=== PATIENT | male | born 1935 | race Caucasian/White ===

== ENCOUNTER 2017-06-21 13:54 | Outpatient (CLI) | payer BC | END 2017-06-21 13:55 | LOC: LAB 13:54 | PROVIDERS: ATTEND Family Medicine | DX: E11.9 Type 2 diabetes mellitus without complications (principal) | CPT/HCPCS: 36415; 83036 ==

== ENCOUNTER 2017-12-25 09:47 | Outpatient (CLI) | payer BC ==
[2017-12-25 10:36] LABS: eGFR (African) > 60; eGFR (Non-African) > 60
== END 2017-12-25 10:30 ==
LOC: LAB 09:47
PROVIDERS: ATTEND Family Medicine
DX: E78.5 Hyperlipidemia, unspecified (principal); I10 Essential (primary) hypertension; E78.00 Pure hypercholesterolemia, unspecified; R73.9 Hyperglycemia, unspecified
CPT/HCPCS: 36415; 80053; 80061; 83036

== ENCOUNTER 2017-12-30 04:10 | Emergency (ER) | payer BC ==
[2017-12-30 04:36] VITALS: BP 142/56
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
[2017-12-30] MEDS: MAGNESIUM CITRATE 296 ML BOTTLE PO ONE (05:04)
== END 2017-12-30 05:12 | disposition home or self-care (01) ==
LOC: ED 04:10
DX: K59.00 Constipation, unspecified (principal)
CPT/HCPCS: 99282

== ENCOUNTER 2018-02-09 10:50 | Outpatient (CLI) | payer BC ==
--- NOTE | 2018-02-09 19:03 | Diagnostic Imaging Report ---
JIMMIE RODRIGUEZ [facility] [address] [facility].[address] [address] Report Submission Date: Feb 09, 2018 11:19:18 AM CDT Patient Study Name: KAYLEEN RAYMOND Date: Feb 09, 2018 10:58:52 AM CDT Modality Type: DX Gender: M Description: SHOULDER : 35 Institution: [facility] Physician: JIMMIE RODRIGUEZ Examination: Plain film right shoulder History: RT SHOULDER, PAIN IN RT SHOULDER AFTER TRIPPING AND FALLING INTO WALL WITH SHOULDER (Hx) Comparison exams: None provided Findings: 3 views of the right shoulder demonstrate normal cortical margins. No evidence for fracture or dislocation. No soft tissue abnormality Impression: No acute osseous process. Electronically signed on Feb 09, 2018 11:19:18 AM CDT by: Marvin FRANKLIN
== END 2018-02-09 10:52 ==
LOC: RAD 10:50
PROVIDERS: ATTEND Physician Assistant
DX: M25.511 Pain in right shoulder (principal); W19.XXXA Unspecified fall, initial encounter; Y92.9 Unspecified place or not applicable
CPT/HCPCS: 73030

== ENCOUNTER 2018-07-02 14:40 | Outpatient (CLI) | payer BC | END 2018-07-02 14:45 | LOC: LAB 14:40 | PROVIDERS: ATTEND Family Medicine | DX: E11.9 Type 2 diabetes mellitus without complications (principal) | CPT/HCPCS: 36415; 83036 ==

== ENCOUNTER 2018-10-23 13:28 | Outpatient (CLI) | payer BC ==
[2018-10-23 13:53] LABS: COLOR,URINE YELLOW (YELLOW)
[2018-10-23 13:54] LABS: APPEARANCE,URINE CLEAR (CLEAR); OCCULT BLOOD,URINE TRACE-INTACT (NEGATIVE); PH URINE 6.5 (5.0 - 8.0); UROBILINOGEN URINE 0.2 Eu (0.2-1.0)
--- NOTE | 2018-10-23 15:03 | Diagnostic Imaging Report ---
MARIA DOLORES BLAND [facility] [address] [facility] [address] [address] Report Submission Date: Oct 23, 2018 2:42:22 PM LEVELER HELPER Patient Study Name: KAYLEEN RAYMOND Date: Oct 23, 2018 1:33:22 PM LEVELER HELPER Modality Type: DX Gender: M Description: SPINE : 35 Institution: [facility] Physician: MARIA DOLORES BLAND Examination: Plain film lumbar spine History: Low back pain Findings: 3 views of the lumbar spine demonstrates osteopenia. Extensive osteophyte formation. Curvature to the right. No compression deformity. Vascular calcifications involving the aortic arch. Impression: Osteopenia, degenerative changes and curvature. No compression deformity. Electronically signed on Oct 23, 2018 2:42:22 PM LEVELER HELPER by: Marvin FRANKLIN
== END 2018-10-23 13:30 ==
LOC: LAB 13:28
PROVIDERS: ATTEND Family Medicine
DX: M85.88 Other specified disorders of bone density and structure, other site (principal); M25.78 Osteophyte, vertebrae; E11.9 Type 2 diabetes mellitus without complications; M54.5 Low back pain
CPT/HCPCS: 72100; 81002; 82043

== ENCOUNTER 2019-07-25 09:10 | Outpatient (CLI) | payer BC ==
[2019-08-01 13:39] LABS: BASOPHILS % 0.3 % (0.0-1.5); HDL 78 mg/dL (>40); NEUTROPHILS # 1.9 # k/uL (1.4-7.7); eGFR (Non-African) > 60
== END 2019-07-25 09:15 | disposition home or self-care (01) ==
LOC: LAB 09:10
PROVIDERS: ATTEND Family Medicine
DX: I10 Essential (primary) hypertension (principal)
CPT/HCPCS: 36415; 80053; 80061; 85025